=== PATIENT | male | born 1995 | race African-American/Black ===

== ENCOUNTER 2020-05-16 13:26 | Emergency (ER) | payer MEDICAID ==
[~2020-05-16] VITALS: Ht 182.9 cm; Wt 99.0 kg
[2020-05-16] MEDS ORDERED: AZITHROMYCIN 500 MG TABLET PO ONE (15:30)
[2020-05-16] MEDS ORDERED: CEFTRIAXONE SODIUM 250 MG/VIAL IM ONE (15:30)
[2020-05-16 16:07] VITALS: BP 119/72
[2020-05-16 16:41] LABS: CLARITY URINE CLEAR (CLEAR); COLOR URINE YELLOW (YELLOW); KETONES URINE NEGATIVE (NEGATIVE); LEUKOCYTE ESTERASE URINE TRACE (NEGATIVE); NITRITE URINE NEGATIVE (NEGATIVE); OCCULT BLOOD URINE NEGATIVE (NEGATIVE); PH URINE 6.5 (4.5-8.0); PROTEIN URINE NEGATIVE (NEGATIVE); SPECIFIC GRAVITY URINE 1.021 (1.005-1.030)
[2020-05-19 04:08] LABS: NEISSERIA GONORRHOEAE NAA Negative (Negative)
== END 2020-05-16 16:08 | disposition home or self-care (01) ==
LOC: ER 14:02
DX: Z20.2 Contact with and (suspected) exposure to infections with a predominantly sexual mode of transmission (principal); F12.10 Cannabis abuse, uncomplicated; F17.210 Nicotine dependence, cigarettes, uncomplicated
CPT/HCPCS: 81003; 87086; 87491; 87591; 96372; 99283; J0696